=== PATIENT | female | born 1975 | race Hispanic/Latino ===

== ENCOUNTER → 2019-01-03 | Outpatient (CLI) | payer MEDICAID | END | disposition home or self-care (01) | LOC: SHCH 14:50 | PROVIDERS: ATTEND Internal Medicine Cardiovascular Disease | DX: I51.7 Cardiomegaly (principal) | CPT/HCPCS: 93306 ==

== ENCOUNTER → 2019-11-03 | Outpatient (CLI) | payer MEDICAID ==
--- NOTE | 2019-11-03 23:22 | NUR ---
GABAPENTIN,JARDIANCE,METOPROLOL,ZOLOFT,ORPHENADRINE,BYDUREON,STANLEYCO Addendum: 11/03/19 at 2329 by NIMESH TOMAS Amended: Links added.
== END ==
LOC: SLP 20:41
PROVIDERS: ATTEND Family Medicine
DX: G47.33 Obstructive sleep apnea (adult) (pediatric) (principal)
CPT/HCPCS: 95810

== ENCOUNTER → 2019-12-04 | Outpatient (CLI) | payer MEDICAID | END | disposition home or self-care (01) | LOC: SLP 20:30 | PROVIDERS: ATTEND Family Medicine | DX: G47.33 Obstructive sleep apnea (adult) (pediatric) (principal); E66.01 Morbid (severe) obesity due to excess calories; I10 Essential (primary) hypertension; E11.9 Type 2 diabetes mellitus without complications; F32.9 Major depressive disorder, single episode, unspecified; Z68.41 Body mass index [BMI] 40.0-44.9, adult | CPT/HCPCS: 95811 ==

== ENCOUNTER → 2023-12-06 | Outpatient (CLI) | payer MEDICAID ==
[2023-12-06 16:40] LABS: T4 (THYROXINE) 4.7 ug/dL (4.7-13.3); THYROID STIMULATING HORMONE 1.87 uIU/mL (0.36-3.74)
== END | disposition home or self-care (01) ==
LOC: LAB 15:38
PROVIDERS: ATTEND Internal Medicine Cardiovascular Disease
DX: I10 Essential (primary) hypertension (principal)
CPT/HCPCS: 36415; 84436; 84443